=== PATIENT | female | born 1990 | race American Indian/Alaskan Native ===

== ENCOUNTER → 2019-11-09 | Emergency (ER) | payer MEDICAID ==
[~2019-11-09] VITALS: Ht 172.7 cm; Wt 54.4 kg
[~2019-11-09] MED LIST: BACL10TA; ESTR0.056; FLUORESCEIN SOD 1 MG TEST STRIP ONE; FLUORESCEIN SOD 1 MG TEST STRIP OP ONE; HYDR-531; HYDROcodone-ACET 5/325MG TAB PO ONE; PARO1TAB33; POTASSIUM CHL 20 Meq TABLET PO ONE; ROPI0.254; SUMA25TA2; TETRACAINE HCL 0.5% OPTH(EYE) SOLN 4ML EACHEYE ONE; TETRACAINE HCL 0.5% OPTH(EYE) SOLN 4ML ONE; [UNRECOGNIZED DRUG - CODE]
[2019-11-09 18:06] LABS: Basophils # (auto) 0 10 ^3/uL (0-0.2); Basophils % (auto) 1.2 % (0.0-2.0); Eosinophils # (auto) 0 10 ^3/uL (0-0.8); Eosinophils % (auto) 0.6 % (0.0-7.0); Hematocrit 42.6 % (36.0-46.0); Hemoglobin 14.3 g/dL (12.2-16.2); Lymphocytes # (auto) 1.2 10 ^3/uL (0.4-5.4); Lymphocytes % (auto) 30.2 % (10.0-50.0); Mean Corpuscular Hemoglobin 32.3 pg (28.0-32.0); Mean Corpuscular Hgb Conc. 33.5 g/dL (32.0-36.0); Mean Corpuscular Volume 96.3 fL (80.0-100.0); Monocytes # (auto) 0.2 10 ^3/uL (0-1.3); Monocytes % (auto) 5.7 % (0.0-12.0); Neutrophils # (auto) 2.4 10 ^3/uL (1.6-8.6); Neutrophils % (auto) 62.3 % (37.0-80.0); Nucleated Red Blood Cells % 0.1 %; Platelet Count (auto) 134 10^3/uL (140-450); Red Blood Cells 4.42 10^6/uL (4.0-5.20); Red Cell Distribution Width 13.7 % (11.8-14.3); White Blood Cell 3.9 10^3/uL (4.4-10.8)
[2019-11-09 18:22] LABS: Albumin 4.4 g/dL (3.4-5.0); BUN/Creatinine Ratio 20.9; Calcium 8.9 mg/dL (8.5-10.1); Potassium 3.4 mmol/L (3.5-5.1)
[2019-11-09 18:25] LABS: Bilirubin, Total 0.3 mg/dL (0.2-1.0); Total Protein 7.7 g/dL (6.4-8.2)
[2019-11-09 19:15] VITALS: BP 101/57
== END | disposition left against medical advice (07) ==
LOC: ER 16:06
DX: H54.62 Unqualified visual loss, left eye, normal vision right eye (principal); R51 Headache; Z53.29 Procedure and treatment not carried out because of patient's decision for other reasons; Z90.710 Acquired absence of both cervix and uterus
CPT/HCPCS: 36415; 70450; 80053; 85025